=== PATIENT | female | born 1950 | race Caucasian/White ===

== ENCOUNTER 2016-05-19 00:37 | Emergency (ER) | payer OTHER ==
--- NOTE | ~2016-05-19 | ER ---
[facility] 65 Y [address] ROOM: [place] [address] LOCATION: ED ADMIT DATE: 05/19/2016 ER/Outpatient Report DISCHARGE DATE: 05/19/2016 FAMILY PHYSICIAN: Chica Deleon MD ATTENDING PHYSICIAN: Ryan Nathan Admission date and time documented in medical record. I saw the patient at 0050 hours. CHIEF COMPLAINT: Epigastric abdominal pain, mid lower anterior sternal pain. HISTORY OF PRESENT ILLNESS: This patient is a 65-year-old female who had a 2-hour history of nausea and vomiting x4 accompanied with mid epigastric discomfort radiating up to her mid lower substernal area. Had some chills, but no fever. No diarrhea. No urinary complaints. No shortness of breath. No lightheadedness, dizziness, syncope, or near syncope. No fall or trauma. No recent colds, coughs, flu, fever, chills, sweats. No headache, eyes, ears, nose, throat, neck, or spine pain. No shortness of breath. No urinary symptoms. No joint or muscle swelling, redness, or pain. No skin eruptions or rash. Does have some depression and anxiety. No neuro changes or endocrine problems. HOME MEDICATIONS: See attached medication list. ALLERGIES: NONE. SOCIAL HISTORY: Nonsmoker, nondrinker. PAST MEDICAL HISTORY: 1. Gastroesophageal reflux. 2. Hiatal hernia. 3. Breast cancer. 4. Depression. OPERATIONS: Mastectomy on the left. REVIEW OF SYSTEMS: All systems reviewed by me are negative with the exception of those discussed in the history of present illness. [facility]: [facility]GE[facility] 65 Y [address] ROOM: [place] [address] LOCATION: [facility] ADMIT DATE: 05/19/2016 ER/Outpatient Report DISCHARGE DATE: 05/19/2016 FAMILY PHYSICIAN: Chica Deleon MD ATTENDING PHYSICIAN: Ryan Nathan PHYSICAL EXAMINATION: VITAL SIGNS: Temperature 98 tympanic, pulse 114, respirations 18, blood pressure 154/76, O2 saturation on room air is 96%. HEAD: Normocephalic. EYES, EARS, NOSE, THROAT: Clear. Mucous membranes moist. NECK: Negative. SPINE: Negative. LUNGS: Clear. No rales, rhonchi, or wheezes. HEART: Regular. Pulses are palpable. No chest wall or ribcage pain to palpation. ABDOMEN: Nondistended. Soft. Tender in the epigastric area. No palpable masses. No organomegaly. Good bowel tones. No CVA tenderness. EXTREMITIES: Intact. Neurovascularly intact. SKIN: Clear. LABORATORY DATA: CMS was normal except for an elevated glucose of 231. Point of care cardiac enzymes were normal. CPK was normal at 136, white count was 8300, 89 segs, 8 lymphs, 2 monos. Hemoglobin 11.2 with hematocrit 34.4 and platelet count 316,000. IMAGING DATA: EKG showed sinus rhythm. No acute ST elevation, ischemic change, or arrhythmia. Three-view abdominal x-rays showed no perforation or obstruction. Does have a large hiatal hernia. She has increased stool pattern. No lung infiltrate. We will review x-ray with the radiologist. IMPRESSION: 1. Mid epigastric lower substernal pain most likely secondary to a hiatal hernia and reflux. 2. Elevated blood sugar at 231, need to rule out jgz-bmkgenl-hsmoxhobw diabetes mellitus. 3. Depression. 4. Hypertension. 5. Left breast cancer, status post mastectomy. PLAN: The patient dismissed home. Observation. Activity as tolerated. Continue present home medications and care. Avoid spicy greasy fried foods, alcohol, nicotine, caffeine. Use [id number]-[id number] antacids or Prilosec. Follow up with personal physician within 1 to 2 weeks. Recheck blood sugar. Continue stool softeners or laxatives. Discussion ensued with the patient her regarding my findings and recommendations, they understands. PATIENT'S NAME: VANESSA FELICIANO [facility] AGE: 65 Y [address] ROOM: [place] [address] LOCATION: [facility] ADMIT DATE: 05/19/2016 ER/Outpatient Report DISCHARGE DATE: 05/19/2016 FAMILY PHYSICIAN: Chica Deleon MD ATTENDING PHYSICIAN: Ryan Nathan RYAN NATHAN MD SDS/modl /[id number] d: 05/19/16 0231 t: 05/19/16 1902, OUTPATIENT REPORT
[2016-05-19 01:29] LABS: HEMATOCRIT 34.4 % (33.0-46.0); HEMOGLOBIN 11.2 g/dL (10.0-15.0); MCH 30.4 pg (27.0-34.0); MCHC 32.6 gm/dL (32.0-36.5); MCV 93.2 fl (83.0-98.0); MPV 9.6 fl (9.4-12.4); PLATELET COUNT 316 K/uL (150-450); RBC 3.69 M/uL (3.50-5.50); WBC 8.3 K/uL (4.0-11.0)
[2016-05-19 01:30] LABS: BASOPHIL % 0.4 %; EOSINOPHIL % 0.2 %; IMMATURE GRANULOCYTE % 0.4 %; LYMPHOCYTE # 0.7 K/uL (0.8-4.0); MONOCYTE # 0.2 K/uL (0.0-1.0); MONOCYTE % 2.4 %; NEUTROPHIL # (ANC) 7.3 K/uL (1.8-7.8); NEUTROPHIL % 88.5 %
[2016-05-19 01:46] LABS: ANION GAP 16.7 (10.0-19.0); CHLORIDE 106 mMol/L (96-110); CO2 23 mMol/L (22-32); POTASSIUM 3.7 mEq/L (3.7-5.1); SODIUM 142 mEq/L (135-145)
[2016-05-19 01:47] LABS: ALBUMIN 3.3 gm/dL (3.5-5.0); ALK PHOS 80 IU/L (33-138); ALT 27 IU/L (12-78); AST 20 IU/L (10-40); BLOOD UREA NITROGEN 13 mg/dL (6-24); CALCIUM 8.8 mg/dL (8.5-10.5); CPK 136 IU/L (21-215); ESTIMATED GFR (MDRD EQUATION) 56; TOTAL BILIRUBIN 0.4 mg/dL (0.0-1.5); TOTAL PROTEIN 6.5 g/dL (6.0-8.4)
== END 2016-05-19 02:09 | disposition disaster alternative care site (69) ==
LOC: GMED 00:37
PROVIDERS: Emergency Medicine
DX: R10.13 Epigastric pain (principal); I10 Essential (primary) hypertension; E11.9 Type 2 diabetes mellitus without complications; K21.9 Gastro-esophageal reflux disease without esophagitis; F32.9 Major depressive disorder, single episode, unspecified; Z90.12 Acquired absence of left breast and nipple

== ENCOUNTER → 2016-11-03 | Outpatient (CLI) | payer OTHER ==
--- NOTE | ~2016-11-03 | PUL ---
PATIENT'S NAME: VANESSA FELICIANO [facility] AGE: 66 Y [address] ROOM: [place] [address] LOCATION: [facility] ADMIT DATE: 11/03/2016 Pulmonary DISCHARGE DATE: FAMILY PHYSICIAN: Chica Deleon MD ATTENDING PHYSICIAN: Chica Deleon NAME OF PROCEDURE: Sleep study PROCEDURE DATE: 11/03/16 TECH: KARIE Crews [place]: [facility] [place] [id number] TECHNICAL PARAMETERS: The patient was studied using International 10/20 measuring system. While the patient was studied, there was continuous monitoring of EEG (8 leads), EOG (2 leads), EKG (3 leads), submental EMG (3 leads), tibial (4 leads), respiratory inductive plethysmography (RIP) for thoracic and abdominal effort, oral and nasal airflow with a thermocouple and pressure transducer, and oximetry. The meter/relay technician also performed visual and auditory observations noting things like body position, patient's status, breath sounds, artifact, snoring level and patient comments. Continuous sound was monitored using a 2-way speaker system and video monitoring was performed using an infrared camera. Review of the entire study was performed epoch by epoch utilizing a single epoch and multiple epoch capability sleep system. MEDICAL HISTORY: The patient is a 66-year-old woman with daytime sleepiness and snoring. SLEEP STAGE SUMMARY: The patient was studied for 443 minutes of which she slept 317 minutes. She fell asleep in 22 minutes and slept for 72% of the night. Sleep architecture revealed a decline in slow wave and REM sleep. RESPIRATORY SUMMARY: Oxygen saturations ranged from 84-92% and were below 88% for 14 minutes. There were 3 apneas and 16 hypopneas for an apnea/hypopnea index normal at 3.4 events per hour. EKG SUMMARY: Average heart rate 93 beats per minute. No dysrhythmias were noted. LIMB MOVEMENT SUMMARY: Periodic limb movements were noted at times through the study. Limb movement index was elevated at 41 events per hour. Limb movement with arousal was elevated at 17.4 events per hour. IMPRESSION: No significant obstructive sleep apnea. There is mild non apneic PATIENT'S NAME: VANESSA FELICIANO [facility] AGE: 66 Y [address] ROOM: [place] [id number] LOCATION: [facility] ADMIT DATE: 11/03/2016 Pulmonary DISCHARGE DATE: FAMILY PHYSICIAN: Chica Deleon MD ATTENDING PHYSICIAN: Chica Deleon hypoxemia. There is probably periodic limb movement disorder. The patient will receive results from the ordering provider. PERLA FIGUEROA MD [facility]/ /[id number] dtt: 11/15/16805 , Perla Figueroa. dtd: 11/09/16 0844
== END | disposition disaster alternative care site (69) ==
LOC: GSLP 10-28 21:00
DX: G47.33 Obstructive sleep apnea (adult) (pediatric) (principal); G47.10 Hypersomnia, unspecified; R53.83 Other fatigue